=== PATIENT | female | born 1965 | race Two or more races ===

== ENCOUNTER 2021-09-12 20:43 | Emergency (ER) | payer SELFPAY ==
[~2021-09-12] VITALS: Ht 162.6 cm; Wt 77.1 kg
[2021-09-12 20:48] VITALS: BP 165/102
[2021-09-12] MEDS ORDERED: ACETAMINOPHEN 325 MG TAB PO ONE (23:45)
== END 2021-09-13 06:24 | disposition left against medical advice (07) ==
LOC: ER 20:44
DX: R51.9 Headache, unspecified (principal); Z53.21 Procedure and treatment not carried out due to patient leaving prior to being seen by health care provider